=== PATIENT | male | born 1940 | race Caucasian/White ===

== ENCOUNTER 2020-12-31 08:25 | Day surgery (SDC) | payer MEDICARE, BC ==
[2020-12-31] MEDS ORDERED: Sodium Chloride 0.9% 10 ML Syringe FLUSH PRN (09:00)
--- NOTE | 2020-12-31 13:17 | OR ---
DATE OF PROCEDURE: 12/31/2020 SURGEON: Debbie Ibarra MD POSTOPERATIVE CARE: Postoperative care will be provided mainly at the [address] [place] [address] [facility] in conjunction with [facility]. PREOPERATIVE DIAGNOSIS: Cataract, right eye. POSTOPERATIVE DIAGNOSIS: Cataract, right eye. PROCEDURE: Phacoemulsification with intraocular lens placement, right eye. ANESTHESIA: Topical and intracameral. ESTIMATED BLOOD LOSS: Minimal. COMPLICATIONS: None. PATHOLOGY SPECIMENS: None. SURGICAL FINDINGS: None. INDICATION FOR PROCEDURE: The patient is a 80-year-old male with history of a visually significant cataract in the right eye, which interfered with activities of daily living. This consisted of a nuclear sclerosis cataract. Following careful discussion of the risks, benefits and alternatives to cataract extraction with intraocular lens placement including blindness and , the patient elected to proceed, and informed, written consent was obtained prior to the procedure. DESCRIPTION OF THE PROCEDURE: The patient was previously identified, and a jeannine placed above the right eye. All sources, including the patient, indicated that the right eye was the correct eye. The patient was subsequently taken to the operating room where standard monitors were applied. The patient was then prepped and draped in the usual sterile fashion for ophthalmic surgery. Attention was first directed at the 12 o'clock position where a paracentesis port was fashioned. Shugar solution followed by Viscoat was instilled into the eye. Attention was then directed to the 8:30 position where a triplanar incision was made in a near-clear manner using a keratome. A continuous capsulorrhexis was then made using a combination of the cystotome and Utrata forceps. Hydrodissection was achieved using a balanced salt solution, and the lens rotated nicely. Phacoemulsification was then done using a modified [id number] technique without complication. Phaco time was 10.69 CDE. The remaining cortex was removed using the irrigation/aspiration handpiece. Provisc was then instilled into the eye. A Technis lens, model DCB00, at 17.5 Diopters was then placed in the capsular bag using an [place] injector. The remaining viscoelastic was removed using the irrigation/aspiration forceps. All wounds were then checked and found to be watertight. The lid speculum and drapes were removed. Maxitrol ointment was placed in the patient's right eye, and the eye was shielded. The patient tolerated the procedure well. The patient was instructed to follow up tomorrow. All needle and sponge counts were correct at the end of the procedure. There were no surgical findings. Debbie Ibarra MD /[id number]
== END 2020-12-31 10:20 | disposition home or self-care (01) ==
LOC: JP.SDS 08:25
PROVIDERS: ATTEND Ophthalmology
DX: H25.11 Age-related nuclear cataract, right eye (principal)
CPT/HCPCS: 66984; V2632

== ENCOUNTER 2021-12-30 07:15 | Day surgery (SDC) | payer MEDICARE, BC ==
[2021-12-30] MEDS ORDERED: Sodium Chloride 0.9% 10 ML Syringe FLUSH PRN (08:00)
== END 2021-12-30 08:50 | disposition home or self-care (01) ==
LOC: JP.SDS 07:15
PROVIDERS: ATTEND Ophthalmology
DX: H25.12 Age-related nuclear cataract, left eye (principal); I10 Essential (primary) hypertension
CPT/HCPCS: 66984; V2632

== ENCOUNTER 2022-09-13 00:14 | Emergency (ER) | payer MEDICARE, BC ==
[2022-09-13 01:12] LABS: CORONAVIRUS COVID-19 NAA NEGATIVE (NEGATIVE)
[2022-09-13 01:15] LABS: ESTIMATED GFR 40 mL/min (>60)
[2022-09-13 01:21] LABS: TROPONIN I HIGH SENSITIVITY 237.2 pg/mL (<=60.3)
[2022-09-13] MEDS ORDERED: Heparin Sodium 5,000 Units/ML Vial IVPUSH ONE (01:39)
[2022-09-13] MEDS ORDERED: Heparin Sodium/D5W 25,000 UNITS/500 ML BAG IV SCH (01:45)
[2022-09-13] MEDS ORDERED: Sodium Chloride 0.9% 1,000 ML IV SCH (01:45)
[2022-09-13] MEDS ORDERED: Sodium Chloride 0.9% 100 ML IV STA (01:46)
[2022-09-13] MEDS ORDERED: Iopamidol 755 Mg/ML 100 ML Bottle IV STA (01:46)
== END 2022-09-13 03:20 ==
LOC: JP.ED 00:14
DX: I21.4 Non-ST elevation (NSTEMI) myocardial infarction (principal); I25.10 Atherosclerotic heart disease of native coronary artery without angina pectoris; I73.9 Peripheral vascular disease, unspecified; I45.10 Unspecified right bundle-branch block; I47.20 Ventricular tachycardia, unspecified; I10 Essential (primary) hypertension; J44.9 Chronic obstructive pulmonary disease, unspecified; M19.90 Unspecified osteoarthritis, unspecified site; Z79.82 Long term (current) use of aspirin; Z20.822 Contact with and (suspected) exposure to COVID-19; Z79.899 Other long term (current) drug therapy
CPT/HCPCS: 0241U; 36415; 71275; 80053; 83735; 83880; 84439; 84443; 84484; 85025; 85379; 85610; 85730; 93010; 96365; 99285; 99285-25; J1644; J3490; J7030; Q9967

== ENCOUNTER 2022-09-29 10:33 | Emergency (ER) | payer MEDICARE, BC | END 2022-09-29 13:53 | disposition home or self-care (01) | LOC: JP.ED 10:33 | DX: R55 Syncope and collapse (principal); R09.02 Hypoxemia; J44.9 Chronic obstructive pulmonary disease, unspecified; K21.9 Gastro-esophageal reflux disease without esophagitis; I10 Essential (primary) hypertension; Z95.0 Presence of cardiac pacemaker; Z79.82 Long term (current) use of aspirin; Z87.891 Personal history of nicotine dependence | CPT/HCPCS: 71045; 71045-26; 99283; 99284 ==

== ENCOUNTER 2022-10-04 15:33 | Inpatient (IN) | payer MEDICARE, BC ==
[2022-10-04] MEDS ORDERED: Sodium Chloride 0.9% 10 ML Syringe FLUSH PRN (15:41)
[2022-10-04] MEDS ORDERED: Ondansetron 4 MG/2 ML SDV IV PRN (15:41)
[2022-10-04] MEDS ORDERED: Albuterol 0.083% 2.5 MG/3 ML Neb Soln NEB PRN (15:41)
[2022-10-04] MEDS ORDERED: Acetaminophen 325 MG Tab PO PRN (15:41)
[2022-10-04] MEDS ORDERED: Sodium Chloride 0.9% 1,000 ML IV SCH ×2 (15:45→16:30)
[2022-10-04] MEDS ORDERED: Piperacillin/Tazobactam 3.375 GM in Sodium Chloride 0.9% 50 ML IV SCH (15:45)
[2022-10-04] MEDS ORDERED: Vancomycin 1 GM SDV IV SCH (16:00)
[2022-10-04] MEDS: Piperacillin/Tazobactam/Dext 3.375 GM in Premix Bag 1 BAG IV SCH ×2 (16:13→21:34)
[2022-10-04] MEDS ORDERED: Enoxaparin 40 MG/0.4 ML Syringe SUBCUT SCH (16:30)
[2022-10-04 16:32] LABS: ESTIMATED GFR 61 mL/min (>60)
[2022-10-04 16:50] LABS: CORONAVIRUS COVID-19 NAA NEGATIVE (NEGATIVE)
[2022-10-04] MEDS ORDERED: Bumetanide 2.5 MG/10 ML MDV IVPUSH ONE (17:00)
[2022-10-04] MEDS: Albuterol/Ipratropium 3.0-0.5 MG/3 ML Neb Soln NEB SCH ×2 (17:07→21:26)
[2022-10-04] MEDS: Levofloxacin/Dextrose 5%-Water 750 MG in Premix Bag 1 BAG IV SCH (17:07)
[2022-10-04] MEDS ORDERED: Sodium Chloride 0.9% 10 ML Syringe FLUSH ONE (17:16)
[2022-10-04] MEDS ORDERED: Sodium Chloride 0.9% 50 ML IV SCH (17:30)
[2022-10-04] MEDS ORDERED: Iopamidol 755 Mg/ML 100 ML Bottle IV SCH (17:30)
[2022-10-04] MEDS ORDERED: Vancomycin 1.6 GM in Sodium Chloride 0.9% 250 ML IV ONE (18:30)
[2022-10-04] MEDS: Fluticasone NASAL Spray 16 GM Bottle NASBOTH SCH (21:22)
[2022-10-04] MEDS: Amiodarone 200 MG Tab PO SCH (21:22)
[2022-10-04] MEDS: Melatonin 3 MG Tab PO SCH (21:22)
[2022-10-04] MEDS: Metoprolol Tartrate 25 MG Tab PO SCH (21:23)
[2022-10-04] MEDS: oxyCODONE 5 MG Tab PO PRN (21:26)
[2022-10-05] MEDS: Piperacillin/Tazobactam/Dext 3.375 GM in Premix Bag 1 BAG IV SCH (04:10)
[2022-10-05] MEDS: Formoterol/Mometasone 200-5 MCG 8.8 GM Inhaler IH SCH ×2 (07:12→20:21)
[2022-10-05] MEDS: Albuterol/Ipratropium 3.0-0.5 MG/3 ML Neb Soln NEB SCH ×4 (07:12→20:25)
[2022-10-05] MEDS ORDERED: Bumetanide 2.5 MG/10 ML MDV IVPUSH ONE (08:15)
[2022-10-05] MEDS: Tiotropium Bromide 4 GM Inhalation Spray (2.5mcg/1 dose; 10 doses) INH SCH (08:18)
[2022-10-05] MEDS: Magnesium Sulfate/Water 2 GM in Premix Bag 1 BAG IV SCH ×2 (09:09→14:32)
[2022-10-05] MEDS: Timolol Maleate 0.5% Ophth Soln 5 ML Bottle EYEBOTH SCH (09:10)
[2022-10-05] MEDS: Rosuvastatin 5 MG Tab PO SCH (09:20)
[2022-10-05] MEDS: Metoprolol Tartrate 25 MG Tab PO SCH ×2 (09:20→20:19)
[2022-10-05] MEDS: Aspirin 81 MG Tab.EC PO SCH (09:21)
[2022-10-05] MEDS: Magnesium Oxide 400 MG Tab PO SCH ×2 (09:21→20:21)
[2022-10-05] MEDS ORDERED: Bacitracin Oint 1 GM U/D Packet TOP ONE (11:00)
[2022-10-05] MEDS: Amiodarone 200 MG Tab PO SCH ×2 (11:39→20:20)
[2022-10-05] MEDS: Levofloxacin/Dextrose 5%-Water 750 MG in Premix Bag 1 BAG IV SCH (16:31)
[2022-10-05] MEDS: Fluticasone NASAL Spray 16 GM Bottle NASBOTH SCH (20:20)
[2022-10-05] MEDS: Melatonin 3 MG Tab PO SCH (20:21)
[2022-10-05] MEDS: oxyCODONE 5 MG Tab PO PRN (20:25)
[2022-10-06] MEDS: Formoterol/Mometasone 200-5 MCG 8.8 GM Inhaler IH SCH ×2 (06:57→20:07)
[2022-10-06] MEDS: Albuterol/Ipratropium 3.0-0.5 MG/3 ML Neb Soln NEB SCH ×4 (06:57→20:14)
[2022-10-06] MEDS: Tiotropium Bromide 4 GM Inhalation Spray (2.5mcg/1 dose; 10 doses) INH SCH (08:09)
[2022-10-06] MEDS: Aspirin 81 MG Tab.EC PO SCH (09:29)
[2022-10-06] MEDS: Rosuvastatin 5 MG Tab PO SCH (09:29)
[2022-10-06] MEDS: Metoprolol Tartrate 25 MG Tab PO SCH ×2 (09:29→20:08)
[2022-10-06] MEDS: Timolol Maleate 0.5% Ophth Soln 5 ML Bottle EYEBOTH SCH (09:30)
[2022-10-06] MEDS: Magnesium Oxide 400 MG Tab PO SCH ×2 (09:30→20:07)
[2022-10-06] MEDS: Bumetanide 1 MG Tab PO SCH (13:59)
[2022-10-06] MEDS: Levofloxacin 250 MG Tab PO SCH (16:16)
[2022-10-06] MEDS: Fluticasone NASAL Spray 16 GM Bottle NASBOTH SCH (20:06)
[2022-10-06] MEDS: Melatonin 3 MG Tab PO SCH (20:07)
[2022-10-06] MEDS: Amiodarone 200 MG Tab PO SCH (20:08)
[2022-10-07] MEDS: Formoterol/Mometasone 200-5 MCG 8.8 GM Inhaler IH SCH ×2 (07:43→20:49)
[2022-10-07] MEDS: Albuterol/Ipratropium 3.0-0.5 MG/3 ML Neb Soln NEB SCH ×2 (07:43→11:12)
[2022-10-07] MEDS: Tiotropium Bromide 4 GM Inhalation Spray (2.5mcg/1 dose; 10 doses) INH SCH (08:23)
[2022-10-07] MEDS: Rosuvastatin 5 MG Tab PO SCH (09:25)
[2022-10-07] MEDS: Metoprolol Tartrate 25 MG Tab PO SCH ×2 (09:25→20:49)
[2022-10-07] MEDS: Aspirin 81 MG Tab.EC PO SCH (09:25)
[2022-10-07] MEDS: Bumetanide 1 MG Tab PO SCH (09:25)
[2022-10-07] MEDS: Magnesium Oxide 400 MG Tab PO SCH ×2 (09:26→20:52)
[2022-10-07] MEDS: Timolol Maleate 0.5% Ophth Soln 5 ML Bottle EYEBOTH SCH (09:26)
[2022-10-07] MEDS ORDERED: Albuterol/Ipratropium 3.0-0.5 MG/3 ML Neb Soln NEB PRN (11:36)
[2022-10-07] MEDS: Enoxaparin 40 MG/0.4 ML Syringe SUBCUT SCH (12:25)
[2022-10-07] MEDS: Levofloxacin 250 MG Tab PO SCH (16:56)
[2022-10-07] MEDS: Fluticasone NASAL Spray 16 GM Bottle NASBOTH SCH (20:51)
[2022-10-07] MEDS: Amiodarone 200 MG Tab PO SCH (20:51)
[2022-10-07] MEDS: Melatonin 3 MG Tab PO SCH (20:52)
[2022-10-08] MEDS: Formoterol/Mometasone 200-5 MCG 8.8 GM Inhaler IH SCH (07:13)
[2022-10-08] MEDS: Tiotropium Bromide 4 GM Inhalation Spray (2.5mcg/1 dose; 10 doses) INH SCH (08:15)
[2022-10-08] MEDS: Bumetanide 1 MG Tab PO SCH (09:21)
[2022-10-08] MEDS: Rosuvastatin 5 MG Tab PO SCH (09:21)
[2022-10-08] MEDS: Enoxaparin 40 MG/0.4 ML Syringe SUBCUT SCH (09:22)
[2022-10-08] MEDS: Aspirin 81 MG Tab.EC PO SCH (09:22)
[2022-10-08] MEDS: Metoprolol Tartrate 25 MG Tab PO SCH (09:22)
[2022-10-08] MEDS: Timolol Maleate 0.5% Ophth Soln 5 ML Bottle EYEBOTH SCH (09:23)
[2022-10-08] MEDS: Magnesium Oxide 400 MG Tab PO SCH (09:23)
== END 2022-10-08 10:34 | disposition home health service (06) | DRG 193 ==
LOC: JP.MS 15:33
PROVIDERS: ADMIT Hospitalist; ATTEND Hospitalist
PROC: 0W9B3ZZ Drainage of Left Pleural Cavity, Percutaneous Approach (ICD-10-PCS; principal; 2022-10-05)
DX: J18.9 Pneumonia, unspecified organism (principal); I50.23 Acute on chronic systolic (congestive) heart failure; J96.01 Acute respiratory failure with hypoxia; J90 Pleural effusion, not elsewhere classified; I25.10 Atherosclerotic heart disease of native coronary artery without angina pectoris; H91.90 Unspecified hearing loss, unspecified ear; I11.0 Hypertensive heart disease with heart failure; Z20.822 Contact with and (suspected) exposure to COVID-19; K21.9 Gastro-esophageal reflux disease without esophagitis; M19.90 Unspecified osteoarthritis, unspecified site; Z79.82 Long term (current) use of aspirin; Z79.51 Long term (current) use of inhaled steroids; Z79.899 Other long term (current) drug therapy; Z95.0 Presence of cardiac pacemaker; Z98.49 Cataract extraction status, unspecified eye; Z98.890 Other specified postprocedural states; Z95.1 Presence of aortocoronary bypass graft; Z87.891 Personal history of nicotine dependence
CPT/HCPCS: 0241U; 36415; 71045; 71275; 80048; 80053; 82042; 82106; 82150; 82945; 83615; 83735; 83986; 84145; 84155; 84478; 85025; 85610; 87015; 87040; 87070; 87102; 87116; 87205; 87206; 87220; 89050; 93306; 94640; A9270-GY; J1650; J1956; J2543; J3370; J3475; J3490; J7030; J7050; J7620; Q9967

== ENCOUNTER 2022-11-04 16:53 | Emergency (ER) | payer MEDICARE, BC ==
[2022-11-04] MEDS ORDERED: Sodium Chloride 0.9% 10 ML Syringe FLUSH PRN (17:50)
[2022-11-04 18:33] LABS: ESTIMATED GFR 47 mL/min (>60)
== END 2022-11-04 20:44 | disposition home or self-care (01) ==
LOC: JP.ED 16:53
DX: I25.10 Atherosclerotic heart disease of native coronary artery without angina pectoris (principal); I11.0 Hypertensive heart disease with heart failure; I50.9 Heart failure, unspecified; A08.4 Viral intestinal infection, unspecified; R09.02 Hypoxemia; J44.9 Chronic obstructive pulmonary disease, unspecified; M19.90 Unspecified osteoarthritis, unspecified site; Z79.82 Long term (current) use of aspirin; Z79.899 Other long term (current) drug therapy; Z79.02 Long term (current) use of antithrombotics/antiplatelets; Z87.891 Personal history of nicotine dependence; Z20.822 Contact with and (suspected) exposure to COVID-19
CPT/HCPCS: 36415; 71046; 80053; 81001; 82800; 83605; 83690; 83880; 85025; 99285; U0002; 99284

== ENCOUNTER 2022-12-13 11:11 | Emergency (ER) | payer MEDICARE, BC ==
[2022-12-13] MEDS ORDERED: Sodium Chloride 0.9% 1,000 ML IV SCH (12:15)
[2022-12-13 12:36] LABS: ESTIMATED GFR 35 mL/min (>60)
== END 2022-12-13 14:30 | disposition home or self-care (01) ==
LOC: JP.ED 11:11
DX: I95.9 Hypotension, unspecified (principal); R79.89 Other specified abnormal findings of blood chemistry; R19.7 Diarrhea, unspecified; E86.0 Dehydration; I10 Essential (primary) hypertension; Z87.891 Personal history of nicotine dependence; Z95.0 Presence of cardiac pacemaker; Z79.02 Long term (current) use of antithrombotics/antiplatelets; Z79.899 Other long term (current) drug therapy; Z79.82 Long term (current) use of aspirin
CPT/HCPCS: 36415; 80053; 81001; 82272; 85025; 96360; 96361; 99284; J7030; 99283

== ENCOUNTER 2023-07-04 13:06 | Emergency (ER) | payer MEDICARE, BC ==
[2023-07-04 14:17] LABS: BASOPHILS ABSOLUTE AUTO 0.04 K/uL (0.00-0.10); BASOPHILS PERCENT AUTO 0.4 % (0.1-1.3); EOSINOPHILS PERCENT AUTO 1.9 % (0.0-5.4); HEMATOCRIT 36.2 % (38.4-49.7); HEMOGLOBIN 11.8 g/dL (12.9-16.9); IMMATURE GRAN ABSOLUTE AUTO 0.05 K/uL (0.00-0.23); IMMATURE GRAN PERCENT AUTO 0.5 % (0.0-0.7); LYMPHOCYTES ABSOLUTE AUTO 1.33 K/uL (0.8-3.3); LYMPHOCYTES PERCENT AUTO 12.6 % (11.4-47.7); MEAN CORPUSCULAR HGB CONC 32.6 g/dL (31.6-35.5); MEAN CORPUSCULAR VOLUME 82.8 fL (81.4-99.0); MONOCYTES ABSOLUTE AUTO 1.37 K/uL (0.20-0.90); NEUTROPHILS ABSOLUTE AUTO 7.55 K/uL (1.0-7.6); NEUTROPHILS PERCENT AUTO 71.6 % (40.0-78.1); PLATELET COUNT,PLT 170 K/uL (130-375); RED BLOOD CELL COUNT 4.37 M/uL (4.14-5.76); WHITE BLOOD CELL COUNT,WBC 10.5 K/uL (3.2-11.0)
[2023-07-04 14:33] LABS: CALCIUM 8.4 mg/dL (8.5-10.1); CREATININE 1.6 mg/dL (0.8-1.3); EST CRCL DRUG DOSING (CG) 36.21 mL/min
[2023-07-04 14:47] LABS: TROPONIN I HIGH SENSITIVITY 13.5 pg/mL (<=60.3); TSH ULTRASENSITIVE 1.346 uIU/mL (0.358-3.740)
== END 2023-07-04 15:26 | disposition home or self-care (01) ==
LOC: JP.ED 13:06
DX: I47.20 Ventricular tachycardia, unspecified (principal); J43.1 Panlobular emphysema; I25.10 Atherosclerotic heart disease of native coronary artery without angina pectoris; I13.0 Hypertensive heart and chronic kidney disease with heart failure and stage 1 through stage 4 chronic kidney disease, or unspecified chronic kidney disease; I50.32 Chronic diastolic (congestive) heart failure; N18.30 Chronic kidney disease, stage 3 unspecified; K21.9 Gastro-esophageal reflux disease without esophagitis; I73.9 Peripheral vascular disease, unspecified; Z95.0 Presence of cardiac pacemaker; Z79.82 Long term (current) use of aspirin; Z79.02 Long term (current) use of antithrombotics/antiplatelets; Z79.899 Other long term (current) drug therapy; Z95.1 Presence of aortocoronary bypass graft
CPT/HCPCS: 36415; 71045; 71045-26; 80048; 83735; 83880; 84443; 84484; 85025; 93005; 93010; 99284

== ENCOUNTER 2024-07-24 10:30 | Emergency (ER) | payer MEDICARE, BC ==
[2024-07-24 11:31] LABS: BASOPHILS ABSOLUTE AUTO 0.04 K/uL (0.00-0.10); BASOPHILS PERCENT AUTO 0.4 % (0.1-1.3); EOSINOPHILS ABSOLUTE AUTO 0.34 K/uL (0.00-0.40); EOSINOPHILS PERCENT AUTO 3.3 % (0.0-5.4); HEMATOCRIT 36.8 % (38.4-49.7); IMMATURE GRAN ABSOLUTE AUTO 0.04 K/uL (0.00-0.23); IMMATURE GRAN PERCENT AUTO 0.4 % (0.0-0.7); LYMPHOCYTES ABSOLUTE AUTO 1.16 K/uL (0.8-3.3); LYMPHOCYTES PERCENT AUTO 11.2 % (11.4-47.7); MEAN CORPUSCULAR HEMOGLOBIN 27.6 pg (31.6-35.5); MEAN CORPUSCULAR HGB CONC 32.6 g/dL (31.6-35.5); MEAN CORPUSCULAR VOLUME 84.6 fL (81.4-99.0); MONOCYTES ABSOLUTE AUTO 1.53 K/uL (0.20-0.90); MONOCYTES PERCENT AUTO 14.8 % (3.3-12.6); NEUTROPHILS ABSOLUTE AUTO 7.22 K/uL (1.0-7.6); NEUTROPHILS PERCENT AUTO 69.9 % (40.0-78.1); PLATELET COUNT,PLT 204 K/uL (130-375); RED BLOOD CELL COUNT 4.35 M/uL (4.14-5.76); WHITE BLOOD CELL COUNT,WBC 10.3 K/uL (3.2-11.0)
[2024-07-24 11:59] LABS: ALANINE AMINOTRANSFERASE,ALT 28 U/L (12-78); ALBUMIN 3.4 g/dL (3.4-5.0); ALKALINE PHOSPHATASE 115 U/L (46-116); ASPARTATE AMNIOTRANSFERASE,AST 21 U/L (15-37); BILIRUBIN TOTAL 0.5 mg/dL (0.2-1.0); BLOOD UREA NITROGEN,BUN 25 mg/dL (7-18); CALCIUM 9.3 mg/dL (8.5-10.1); CARBON DIOXIDE,CO2 33 mmol/L (21-32); CHLORIDE,CL 99 mmol/L (100-108); CREATININE 1.5 mg/dL (0.8-1.3); ESTIMATED GFR 46 mL/min (>60); GLUCOSE RANDOM 109 mg/dL (74-106); POTASSIUM,K 4.3 mmol/L (3.6-5.2); PRO B-TYPE NATRIUR PEPT,BNPPRO 1967 pg/mL (5-450); PROTEIN TOTAL,TP 6.7 g/dL (6.4-8.2); SODIUM,NA 136 mmol/L (140-148)
[2024-07-24 12:00] LABS: ANION GAP 8.3 mmol/L (5.0-14.0)
[2024-07-24 12:02] LABS: APPEARANCE,URINE CLEAR (CLEAR); BILIRUBIN,URINE NEGATIVE (NEGATIVE); COLOR,URINE YELLOW (YELLOW); GLUCOSE,URINE NEGATIVE (NEGATIVE); KETONES,URINE NEGATIVE (NEGATIVE); LEUKOCYTE ESTERASE,URINE NEGATIVE (NEGATIVE); NITRITE,URINE NEGATIVE (NEGATIVE); OCCULT BLOOD,URINE NEGATIVE (NEGATIVE); PROTEIN,URINE NEGATIVE (NEGATIVE); UROBILINOGEN,URINE 0.2 EU/dL (0.2-1.0)
[2024-07-24 12:07] LABS: AMORPHOUS SEDIMENT,URINE RARE; BACTERIA,URINE NOT SEEN; EPITHELIAL CELLS,URINE NOT SEEN; MUCUS,URINE NOT SEEN; RBC,URINE NOT SEEN (0-5); WBC,URINE NOT SEEN (0-5)
[2024-07-24] MEDS: Bumetanide 2.5 MG/10 ML MDV IVPUSH ONE (13:50)
[2024-07-24] MEDS: Sodium Chloride 0.9% 10 ML Syringe FLUSH ONE (14:01)
== END 2024-07-24 16:34 | disposition home or self-care (01) ==
LOC: JP.ED 10:30
DX: E87.70 Fluid overload, unspecified (principal); I48.91 Unspecified atrial fibrillation; J44.9 Chronic obstructive pulmonary disease, unspecified; I25.10 Atherosclerotic heart disease of native coronary artery without angina pectoris; E78.00 Pure hypercholesterolemia, unspecified; I25.2 Old myocardial infarction; I10 Essential (primary) hypertension; K21.9 Gastro-esophageal reflux disease without esophagitis; Z86.16 Personal history of COVID-19; Z95.1 Presence of aortocoronary bypass graft; Z87.891 Personal history of nicotine dependence; Z79.899 Other long term (current) drug therapy; Z79.82 Long term (current) use of aspirin
CPT/HCPCS: 36415; 71046; 71046-26; 80053; 81001; 83880; 84484; 85025; 85379; 96374; 99284; 99285-25; J1939

== ENCOUNTER 2024-10-17 12:16 | Emergency (ER) | payer MEDICARE, BC ==
[2024-10-17] MEDS ORDERED: Sodium Chloride 0.9% 10 ML Syringe FLUSH PRN (12:49)
[2024-10-17 13:03] LABS: BASOPHILS ABSOLUTE AUTO 0.05 K/uL (0.00-0.10); BASOPHILS PERCENT AUTO 0.4 % (0.1-1.3); EOSINOPHILS ABSOLUTE AUTO 0.27 K/uL (0.00-0.40); EOSINOPHILS PERCENT AUTO 2.4 % (0.0-5.4); HEMATOCRIT 41.8 % (38.4-49.7); HEMOGLOBIN 13.3 g/dL (12.9-16.9); IMMATURE GRAN ABSOLUTE AUTO 0.07 K/uL (0.00-0.23); IMMATURE GRAN PERCENT AUTO 0.6 % (0.0-0.7); LYMPHOCYTES ABSOLUTE AUTO 1.49 K/uL (0.8-3.3); MEAN CORPUSCULAR HEMOGLOBIN 27.5 pg (31.6-35.5); MEAN CORPUSCULAR HGB CONC 31.8 g/dL (31.6-35.5); MEAN CORPUSCULAR VOLUME 86.5 fL (81.4-99.0); MONOCYTES ABSOLUTE AUTO 1.35 K/uL (0.20-0.90); MONOCYTES PERCENT AUTO 11.8 % (3.3-12.6); NEUTROPHILS ABSOLUTE AUTO 8.19 K/uL (1.0-7.6); NEUTROPHILS PERCENT AUTO 71.8 % (40.0-78.1); PLATELET COUNT,PLT 199 K/uL (130-375); RED BLOOD CELL COUNT 4.83 M/uL (4.14-5.76); WHITE BLOOD CELL COUNT,WBC 11.4 K/uL (3.2-11.0)
[2024-10-17 13:27] LABS: A/G RATIO 1.3 (1.2-2.2); ALANINE AMINOTRANSFERASE,ALT 29 U/L (12-78); ALBUMIN 3.6 g/dL (3.4-5.0); ALKALINE PHOSPHATASE 93 U/L (46-116); ANION GAP 9.9 mmol/L (5.0-14.0); ASPARTATE AMNIOTRANSFERASE,AST 21 U/L (15-37); BILIRUBIN TOTAL 0.4 mg/dL (0.2-1.0); BLOOD UREA NITROGEN,BUN 31 mg/dL (7-18); CALCIUM 9.2 mg/dL (8.5-10.1); CARBON DIOXIDE,CO2 31 mmol/L (21-32); CHLORIDE,CL 102 mmol/L (100-108); CREATININE 1.5 mg/dL (0.8-1.3); ESTIMATED GFR 46 mL/min (>60); GLUCOSE RANDOM 95 mg/dL (74-106); POTASSIUM,K 4.9 mmol/L (3.6-5.2); PROTEIN TOTAL,TP 6.4 g/dL (6.4-8.2); SODIUM,NA 143 mmol/L (140-148)
== END 2024-10-17 17:19 ==
LOC: JP.ED 12:16
DX: I49.9 Cardiac arrhythmia, unspecified (principal); I25.10 Atherosclerotic heart disease of native coronary artery without angina pectoris; I10 Essential (primary) hypertension; I25.2 Old myocardial infarction; I48.91 Unspecified atrial fibrillation; E78.00 Pure hypercholesterolemia, unspecified; Z95.810 Presence of automatic (implantable) cardiac defibrillator; J44.9 Chronic obstructive pulmonary disease, unspecified; K21.9 Gastro-esophageal reflux disease without esophagitis; Z86.16 Personal history of COVID-19; Z79.899 Other long term (current) drug therapy; Z79.82 Long term (current) use of aspirin
CPT/HCPCS: 36415; 80053; 83735; 85025; 99285